=== PATIENT | female | born 1970 | race Caucasian/White ===

== ENCOUNTER 2017-09-04 08:40 | Outpatient (CLI) | payer BC | END 2017-09-04 08:41 | disposition home or self-care (01) | LOC: CP 08:40 | PROVIDERS: ATTEND Orthopaedic Surgery Sports Medicine | DX: J84.10 Pulmonary fibrosis, unspecified (principal); G47.33 Obstructive sleep apnea (adult) (pediatric) | CPT/HCPCS: 94010 ==

== ENCOUNTER 2018-09-09 08:38 | Outpatient (CLI) | payer OTHER | END 2018-09-09 08:39 | disposition home or self-care (01) | LOC: CP 08:38 | PROVIDERS: ATTEND Internal Medicine | DX: J84.9 Interstitial pulmonary disease, unspecified (principal); J96.11 Chronic respiratory failure with hypoxia | CPT/HCPCS: 94010; 94729 ==

== ENCOUNTER 2018-12-30 12:42 | Outpatient (CLI) | payer OTHER ==
--- NOTE | 2018-12-30 13:19 | RAD ---
XR Chest Pa Lat STANDARD History: Rheumatoid lung. Comparison: Radiograph 2017. Findings: Bronchiectasis in the upper lobes is slightly increased. While loss within both hemithorace s. Fibrosis in the lower lobes. Cardiac silhouette and mediastinal contours are similar. No acute osseous abnormality. Impression: Mild progressive fibrosis and bronchiectasis.
== END 2018-12-30 12:43 | disposition home or self-care (01) ==
LOC: BICRAD 12:42
PROVIDERS: ATTEND Internal Medicine Rheumatology
DX: M05.10 Rheumatoid lung disease with rheumatoid arthritis of unspecified site (principal); J84.10 Pulmonary fibrosis, unspecified; J47.9 Bronchiectasis, uncomplicated
CPT/HCPCS: 71046